=== PATIENT | male | born 1990 | race Caucasian/White ===

== ENCOUNTER 2016-05-03 11:22 | Outpatient (CLI) ==
--- NOTE | 2016-05-03 12:46 | DI ---
EXAM: Radiographs, lumbar spine HISTORY: Low back pain. COMPARISON: None available. TECHNIQUE: Five views. FINDINGS: Pedicle screws seen at L4 and S1 with connecting rods present. Hardware appears intact. Suspect laminectomy at this level as well. There is anterolisthesis of L5 on S1 by approximately 1 cm. Alignment is otherwise normal. There is loss of disc height at L4-5 and L5-S1. Disc heights are otherwise normal. No acute fractures seen. Mild left convex curvature centered near L2 noted. Sacral arcuate lines intact. Soft tissues are unremarkable. IMPRESSION: 1. Postsurgical changes from L4-S1 as described. 2. Mild left convex lumbar curvature.
== END 2016-05-03 11:23 | disposition home or self-care (01) ==
LOC: RAD 11:22
PROVIDERS: ATTEND Nurse Practitioner Family
DX: M54.5 Low back pain (principal)

== ENCOUNTER 2016-05-04 11:55 | Outpatient (CLI) | payer OTHER ==
[2016-05-04 12:13] LABS: BASOPHILS % (AUTO) 0.2 % (0.0-3.0); EOSINOPHILS % (AUTO) 0.3 % (0.0-7.0); HEMOGLOBIN 14.3 g/dl (14.0-18.0); IMMATURE GRANULOCYTE % (AUTO) 0.4 % (0.0-5.0); LYMPHOCYTES # (AUTO) 3.4 K/uL (0.60-3.4); LYMPHOCYTES % (AUTO) 27.1 (10.0-50.0); MEAN CORPUSCULAR HEMOGLOBIN 29.4 pg (27.0-31.0); MEAN CORPUSCULAR VOLUME 86.4 fl (80.0-94.0); MONOCYTES # (AUTO) 0.9 K/uL (0.4-2.0); MONOCYTES % (AUTO) 7.1 (0-10); NEUTROPHILS # (AUTO) 8.1 K/ul (2.0-6.9); NEUTROPHILS % (AUTO) 64.9; PLATELET COUNT 317 10^3/uL (140-440); RED BLOOD COUNT 4.86 10^6/ul (4.70-6.10); WHITE BLOOD COUNT 12.42 K/ul (4.2-10.2)
[2016-05-04 12:34] LABS: ALBUMIN 4.3 g/dL (3.4-5.0); ALBUMIN/GLOBULIN RATIO 1.65; ANION GAP 13.7; BILIRUBIN,TOTAL 0.43 mg/dL (0.00-1.20); BUN/CREATININE RATIO 22.78; CALCIUM 9.3 mg/dL (8.2-10.2); CREATININE 0.79 mg/dL (0.60-1.10); POTASSIUM 3.7 mmol/L (3.5-5.1); TOTAL PROTEIN 6.9 g/dL (6.4-8.2)
--- NOTE | 2016-05-05 08:13 | MRI ---
EXAM: Lumbar spine MRI with and without contrast. HISTORY: Low back pain. COMPARISON: Lumbar spine radiographs 05/03/2016 and chest radiograph 11/17/2015. TECHNIQUE: Multiplanar, multisequence MR images were acquired of the lumbar spine before and after administration of intravenous contrast. FINDINGS: Transitional lumbar spinal anatomy is present. Chest radiographs demonstrate 13 rib-beari ng vertebra and these are numbered T1 through T13 which is concordant with the previous lumbar spine radiographs. For the purposes of this dictation, the first [id number] vertebra is numbered L1 and given this numbering, L5 is a transitional vertebra with partial sacralization and hypoplasia o f the vertebral body. There is accentuation of the usual lumbar lordosis and there is 2.7 mm retrol isthesis of L4 on L5 and 6.2 mm anterolisthesis of L5 on S1. The L5 vertebra is smaller than the L4 and S1 vertebra. The lumbar vertebra are generally normal in height and intrinsic bone marrow signa l. There is mild chronic anterior wedging of the T10-T11 vertebra that is considered developmental. There has been partial resection of the L2 posterior spinous process and resection of the L3, L4 an d L5 posterior spinous process. Increased fat is present in the medial posterior paraspinous muscle s from L2 to the sacrum. Metallic artifact is present consistent with a posterior longitudinal inte rbody fusion from L4-S1 with bipedicular screws at L4 and S1, a cross link at L5-S1 and paired poste rior fixation rods from L4-S1. There is disc space narrowing and disc desiccation at L4-5 and L5-S1 and mild disc space narrowing at L3-4. There is mild irregular concavity of the endplates in the sp ine from T12-1 to L3-4. Conus medullaris ends at L1 and has normal signal intensity and no abnormal contrast enhancement. The visualized liver, spleen and kidneys are unremarkable. The bladder is distended. There are no paravertebral masses. T11-12, T12-L1, L1-2: The intervertebral discs are normal. There is no central canal stenosis or f oraminal stenosis. L2-3: There is a minor posterior disc bulge with marginal osteophytes and a possible small central disc protrusion that minimally effaces the ventral thecal sac. Mild bilateral facet and ligamentum flavum hypertrophy is present. This causes mild spinal stenosis and minor bilateral foraminal steno sis. AP diameter of the thecal sac is 8.9 mm. L3-4: There is a minor posterior disc bulge with marginal osteophytes that minimally effaces the ve ntral thecal sac. Bilateral facet and ligamentum flavum hypertrophy is present. There is minor lef t neural foraminal stenosis and no central canal stenosis. L4-5: There is a small posterior disc osteophyte complex that minimally effaces the anterior epidur al fat. There has been a posterior spinal fusion. There is no central canal stenosis or foraminal stenosis. L5-S1: There is anterolisthesis of L5 on S1 and there has been a posterior spinal fusion. There is no central canal stenosis. There is minor left foraminal stenosis and the left L5 nerve root may b steele against the pedicle as it traverses the neural foramen. IMPRESSION: 1. Transitional lumbar spinal anatomy. 2. Posterior spinal fusion L4-S1. No central canal stenosis. 3. Mild discogenic disease L2-3 with possible small central disc protrusion and mild spinal stenosi s.
== END 2016-05-04 11:56 | disposition home or self-care (01) ==
LOC: RAD 11:55
PROVIDERS: ATTEND Nurse Practitioner Family
DX: M43.10 Spondylolisthesis, site unspecified (principal); M54.5 Low back pain
CPT/HCPCS: 36415; 80053; 83036; 85025

== ENCOUNTER 2016-05-18 09:39 | Outpatient (CLI) | END 2016-05-18 09:40 | disposition home or self-care (01) | LOC: LAB 09:39 | PROVIDERS: ATTEND General Practice | DX: Z02.89 Encounter for other administrative examinations (principal); Z11.59 Encounter for screening for other viral diseases ==

== ENCOUNTER 2016-12-15 16:15 | Outpatient (CLI) | payer OTHER | END 2016-12-15 16:16 | disposition home or self-care (01) | LOC: LAB 16:15 | PROVIDERS: ATTEND Nurse Practitioner Family | DX: J02.9 Acute pharyngitis, unspecified (principal) | CPT/HCPCS: 87651; 87880 ==

== ENCOUNTER 2017-05-03 13:13 | Outpatient (CLI) | END 2017-05-03 13:14 | disposition home or self-care (01) | LOC: LAB 13:13 | PROVIDERS: ATTEND Nurse Practitioner Family | DX: R50.9 Fever, unspecified (principal) | CPT/HCPCS: 87651; 87804 ==

== ENCOUNTER 2017-07-26 15:00 | Outpatient (CLI) | payer OTHER | END 2017-07-26 15:01 | disposition home or self-care (01) | LOC: RHC-LAB 15:00 | PROVIDERS: ATTEND Emergency Medicine | DX: J06.9 Acute upper respiratory infection, unspecified (principal); R68.89 Other general symptoms and signs | CPT/HCPCS: 87651; 87804 ==

== ENCOUNTER 2017-08-20 20:50 | Emergency (ER) ==
[2017-08-20] MEDS ORDERED: PHENERGAN 25 MG/ML VIAL IM STA (21:03)
[2017-08-20] MEDS ORDERED: TORADOL IM STA (21:03)
[2017-08-20] MEDS ORDERED: MORPHINE 4 MG/ML SYRINGE IM STA (21:03)
[2017-08-20 21:04] VITALS: BP 135/87; TEMP 97.3; BMI 25.8
--- NOTE | 2017-08-20 21:22 | ED.PDOC ---
General ED Provider: Dr. SELIN FINLEY-ER Chief Complaint: Headache Stated Complaint: clem got a migraine--clem had them for years Time Seen by Physician: 20:55 Mode of Arrival: Walk-In Information Source: Patient, Family Exam Limitations: No limitations Primary Care Provider: RUPINDER GALLAGHER-[facility] Nursing and Triage Documentation Reviewed and Agree: Yes Reviewed sepsis parameters & appropriate labs ordered?: Yes System Inflammatory Response Syndrome: Not Applicable Sepsis Protocol: For patient's 13 years and over: Temp is 96.8 and below OR 101 and greater Pulse >90 BPM Resp >20/minute Acutely Altered Mental Status Are patient's symptoms suggestive of a new infection, such as: -Pneumonia -Skin, Soft Tissue -Endocarditis -UTI -Bone, Joint Infection -Implantable Device -Acute Abdominal Infection -Wound Infection -Meningitis -Blood Stream Catheter Infection -Unknown Neurological Complaint Exam - Headache Complaint/Exam Onset: Gradual Duration: several hours Symptoms Are: Still present Timing: Constant Worst Headache Ever: Yes Initial Severity: Moderate Current Severity: Moderate Location: Diffuse Character: Reports: Dull, Throbbing, Pressure, Typical headache, Migraine Aggravating: Reports: Bright lights Associated Signs and Symptoms: Reports: Nausea Related History: Reports: Similar episode. Denies: Recent trauma, Remote trauma SAH Risk Factors: Reports: None Meningitis Risk Factors: Reports: None SDH Risk Factors: Reports: Male Temporal Arteritis Risk Factors: Reports: Normal Head CT Within Last 12 Months: No Fundoscopic Exam: Present: Normal Findings Papilledema Present: No Temporal Artery Tenderness: Present: None Sinus Tenderness: Present: None TMJ Tenderness: Present: None Glascow Coma Scale (see protocol): 15 Meningeal Signs Positive: No Pain on Passive Flexion-Positive Kernig's: No ROM Limited In: No Limitiations Focal Weakness: Present: None Focal Sensory Loss: Present: None Nystagmus Present: No Gag Reflex Present: Yes [id number]: Normal Findings Romberg Test Positive: No Babinski Sign: Negative Right, Negative Left Heel to Toe Normal: Yes Differential Diagnoses: Migraine, Tension Headache Review of Systems - Review Of Systems Constitutional: Reports: No symptoms Eyes: Reports: No symptoms Ears, Nose, Mouth, Throat: Reports: No symptoms Respiratory: Reports: No symptoms Cardiac: Reports: No symptoms GI: Reports: Nausea, Poor appetite : Reports: No symptoms Musculoskeletal: Reports: No symptoms Skin: Reports: No symptoms Neurological: Reports: Headache Endocrine: Reports: No symptoms Hematologic/Lymphatic: Reports: No symptoms All Other Systems: Reviewed and Negative Past Medical History - Past Medical History Previously Healthy: Yes Endocrine: Reports: Unknown Cardiovascular: Reports: Unknown Respiratory: Reports: Unknown Hematological: Reports: Unknown Gastrointestinal: Reports: Unknown Genitourinary: Reports: Unknown Neuro/Psych: Reports: Migraine Musculoskeletal: Reports: Unknown Cancer: Reports: Unknown - Surgical History General Surgical History: Reports: Unknown - Family History Family History: Reports: Unknown - Social History Smoking Status: Never smoker Hx Substance Use: No Alcohol Screening: Occasionally - Immunizations Tetanus Shot up to Date: Yes Physical Exam - Physical Exam Appearance: Well-appearing, No pain distress, Well-nourished Pain Distress: Moderate Eyes: RAFAEL ENT: Ears normal, Nose normal, Oropharynx normal Neck: Supple Respiratory: Airway patent Cardiovascular: RRR, Pulses normal, No rub, No murmur GI/: Soft, Nontender, No masses, Bowel sounds normal, No Organomegaly Musculoskeletal: Normal strength, ROM intact, No edema, No calf tenderness Skin: Warm, Dry, Normal color Neurological: Sensation intact, Motor intact, Reflexes intact, Cranial nerves intact, Alert, Oriented Psychiatric: Affect appropriate, Mood appropriate Interpretation - Radiology Interpretation Radiology Interpretation By: Radiologist Radiology Results: Negative Exam Interpreted: CT Scan Re-Evaluation - Re-Evaluation Time of Re-Evaluation: 21:57 Status: Improved Vital Signs Stable: Yes Pain Level: 1 Appearance: NAD Lungs: Clear Skin: Warm and Dry Neuro: Alert and Oriented X3 CV: RRR Critical Care Note - Critical Care Note Total Time (mins): 0 Course - Course Hematology/Chemistry: 08/20/17 21:35 Orders, Labs, Meds: Lab Review 08/20/17 08/20/17 21:30 21:35 WBC 9.75 RBC 4.75 Hgb 14.3 Hct 40.0 L MCV 84.2 MCH 30.1 MCHC 35.8 H RDW Coeff of Thais 11.9 Plt Count 255 Immature Gran % (Auto) 0.3 Neut % (Auto) 64.6 Lymph % (Auto) 25.7 [place] % (Auto) 6.7 Eos % (Auto) 2.3 Baso % (Auto) 0.4 Immature Gran # (Auto) 0.0 Neut # (Auto) 6.3 Lymph # (Auto) 2.5 [place] # (Auto) 0.7 Eos # (Auto) 0.2 Baso # (Auto) 0.0 Urine Color Yellow Urine Clarity Clear Urine pH 7.0 Ur Specific [place] 1.020 Urine Protein Negative Urine Glucose (UA) Negative Urine Ketones Negative Urine Blood Negative Urine Nitrite Negative Urine Bilirubin Negative Urine Urobilinogen 1.0 Ur Leukocyte Esterase Negative Orders Category Date Time Status BLOOD CULTURE (ED ONLY) Stat LAB 08/20/17 21:35 Received CBC W/ AUTO DIFF Stat LAB 08/20/17 21:35 Completed COMPREHENSIVE METABOLIC PANEL Stat LAB 08/20/17 21:35 Received UA [URINALYSIS C & S IF INDICATED] Stat LAB 08/20/17 21:30 Completed Ketorolac Tromethamine [Toradol] MEDS 08/20/17 21:03 Discontinued 60 mg IM ONCE STA Morphine Sulfate [Morphine 4 mg/ml Syringe] MEDS 08/20/17 21:03 Discontinued 4 mg IM ONCE STA Promethazine HCl [Phenergan 25 mg/ml Vial] MEDS 08/20/17 21:03 Discontinued 25 mg IM ONCE STA CT HEAD W/O CONTRAST Stat RADS 08/20/17 21:03 Completed Medications Discontinued Medications Generic Name Dose Route Start Last Admin Trade Name Freq PRN Reason Stop Dose Admin Ketorolac Tromethamine 60 mg 08/20/17 21:03 08/20/17 21:20 Toradol IM 08/20/17 21:04 60 mg ONCE STA Administration Morphine Sulfate 4 mg 08/20/17 21:03 08/20/17 21:14 Morphine 4 Mg/Ml Syringe IM 08/20/17 21:04 4 mg ONCE STA Administration Promethazine HCl 25 mg 08/20/17 21:03 08/20/17 21:19 Phenergan 25 Mg/Ml Vial IM 08/20/17 21:04 25 mg ONCE STA Administration Vital Signs: Temp Pulse Resp BP Pulse Ox 08/20/17 20:51 97.3 F L 74 20 135/87 99 Departure - Departure Time of Disposition: 21:58 Disposition: HOME SELF-CARE Discharge Problem: Migraine Qualifiers: Migraine type: unspecified Status migrainosus presence: without status migrainosus Intractability: not intractable Qualified Code(s): G43.909 - Migraine, unspecified, not intractable, without status migrainosus Instructions: Migraine Headache (ED) Condition: Good Pt referred to PMD for follow-up: Yes IPMP verified?: No Additional Instructions: f/u with pcp--consider discussing imitrex medications for next migraine alaniz Allergies/Adverse Reactions: Allergies No Known Allergies Allergy (Verified 08/20/17 20:57) Home Medications: Ambulatory Orders Cetirizine HCl 10 mg PO DAILY 09/12/16 Disposition Discussed With: Patient, Family
--- NOTE | 2017-08-20 21:24 | CT ---
EXAM: CT head without contrast HISTORY: Headache COMPARISON: None. TECHNIQUE: Helical axial CT of the head was performed without contrast. Coronal and sagittal reconstr uctions were performed. FINDINGS: There is no acute intracranial abnormality. There is no hemorrhage, mass, midline shift, abnormal ex tra-axial fluid collection, hydrocephalus or evolving ischemia. The prince-white matter junction is wel l maintained. Brain parenchyma, ventricles and sulci are normal. There are no acute calvarial lesions. Visualized orbits and globes are unremarkable. The mastoid ai r cells demonstrate no significant soft tissue opacification. The visualized paranasal sinuses show n o air-fluid levels. IMPRESSION: Negative head CT.
== END 2017-08-20 22:15 | disposition home or self-care (01) ==
LOC: ED 20:50
DX: G43.909 Migraine, unspecified, not intractable, without status migrainosus (principal)
CPT/HCPCS: 36415; 80053; 81001; 85025; 87040; 96372; 99283

== ENCOUNTER 2017-12-26 16:16 | Outpatient (CLI) | payer OTHER | END 2017-12-26 16:17 | disposition home or self-care (01) | LOC: RHC-LAB 16:16 | PROVIDERS: ATTEND Otolaryngology | DX: H66.90 Otitis media, unspecified, unspecified ear (principal); H92.12 Otorrhea, left ear | CPT/HCPCS: 87070; 87186 ==

== ENCOUNTER 2018-07-02 14:37 | Outpatient (CLI) | payer OTHER | END 2018-07-02 14:38 | disposition home or self-care (01) | LOC: RHC-LAB 14:37 | PROVIDERS: ATTEND Nurse Practitioner Family | DX: J32.4 Chronic pansinusitis (principal) | CPT/HCPCS: 87070 ==